=== PATIENT | female | born 1960 ===

== ENCOUNTER 2017-07-24 07:37 | Emergency (ER) | payer MEDICAID ==
[2017-07-24 07:46] VITALS: RESP 18; TEMP 98.6; O2SAT 98
--- NOTE | 2017-07-24 08:04 | C.PDOC ---
History Of Present Illness 56-year-old female, presents to the emergency department with complaints of vaginal itching, and discharged for the past 2 DAYS. NO IMPROVE OTC MEDS. NO OTHER ASSOC SX EXAM NAD +INCR ERYTHEMA LABIA MAJORA W THICK WHITE DC C/W YEAST VAGINITIS REMAINDER NEG Time Seen by Provider: 07/24/17 07:54 Chief Complaint (Nursing): Female Genitourinary History Per: Patient History/Exam Limitations: no limitations Onset/Duration Of Symptoms: Days Current Symptoms Are (Timing): Still Present Severity: Moderate Past Medical History Reviewed: Historical Data, Nursing Documentation, Vital Signs Vital Signs: Last Vital Signs Temp 98.6 F 07/24/17 07:42 Pulse 66 07/24/17 08:44 Resp 18 07/24/17 08:44 BP 138/85 07/24/17 08:44 Pulse Ox 98 07/24/17 13:36 - Medical History PMH: Depression, Gastritis, HTN, Hypercholesterolemia, Sleep Apnea Family History: States: No Known Family Hx, Hypertension - Social History Hx Alcohol Use: No Hx Substance Use: No Review Of Systems Constitutional: Negative for: Fever, Chills Respiratory: Negative for: Shortness of Breath Gastrointestinal: Negative for: Nausea, Vomiting Genitourinary: Positive for: Vaginal Discharge, Other (vaginal itching). Negative for: Dysuria, Frequency, Pelvic Pain Musculoskeletal: Negative for: Back Pain Skin: Negative for: Rash Physical Exam - Physical Exam Appears: Non-toxic, No Acute Distress Skin: Normal Color, Warm, Dry, No Rash Head: Atraumatic, Normacephalic Eye(s): bilateral: Normal Inspection Nose: Normal Oral Mucosa: Moist Lips: Normal Appearing Neck: Normal ROM Cardiovascular: Rhythm Regular, No Murmur Respiratory: Normal Breath Sounds, No Accessory Muscle Use Gastrointestinal/Abdominal: Soft, No Tenderness, No Guarding, No Rebound Back: No CVA Tenderness Pelvic: Other ( +INCR ERYTHEMA LABIA MAJORA W THICK WHITE DC C/W YEAST VAGINITIS ) Extremity: Normal ROM, No Deformity, No Swelling Neurological/Psych: Oriented x3, Normal Speech ED Course And Treatment O2 Sat by Pulse Oximetry: 98 (RA) Pulse Ox Interpretation: Normal Disposition Counseled Patient/Family Regarding: Diagnosis, Need For Followup, Rx Given - Disposition Referrals: [facility] [Other] [facility] [Outside] [facility] [Outside] Disposition: HOME/ ROUTINE Disposition Time: 08:35 Condition: FAIR Prescriptions: Clotrimazole/Betamethasone [Lotrisone] 15 gm EXT BID #1 tube Miconazole [Miconazole 7] 100 mg VG DAILY #7 sup Nitrofurantoin Macrocrystals [Macrobid] 100 mg PO BID #10 cap Phenazopyridine HCl [Pyridium] 200 mg PO BID #6 tablet Instructions: Urinary Tract Infection, Adult (DC), Vaginal Yeast Infection (DC) Forms: [employer] (Nigerien) Print Language: PALAUAN - Clinical Impression Clinical Impression: Vulvovaginal candidiasis, UTI (urinary tract infection) - Scribe Statement The provider has reviewed the documentation as recorded by the Scribe (Bertha Flores) All medical record entries made by the Scribe were at my direction and personally dictated by me. I have reviewed the chart and agree that the record accurately reflects my personal performance of the history, physical exam, medical decision making, and the department course for this patient. I have also personally directed, reviewed, and agree with the discharge instructions and disposition.
[2017-07-24 08:29] LABS: SQUAMOUS EPITHIAL 25 /hpf (0-5); URINE BACTERIA MOD (<OCC); URINE BILIRUBIN NEGATIVE (NEGATIVE); URINE BLOOD 2+ (NEGATIVE); URINE CLARITY Hazy (Clear); URINE COLOR Yellow (YELLOW); URINE GLUCOSE (UA) NORMAL (Normal); URINE LEUKOCYTE ESTERASE 3+ Leu/uL (Negative); URINE PROTEIN NEGATIVE (NEGATIVE); URINE UROBILINOGEN NORMAL mg/dL (0.2-1.0)
[2017-07-24 08:45] VITALS: BP 138/85; PULSE 66
== END 2017-07-24 08:45 | disposition home or self-care (01) ==
LOC: C.ER 07:37
DX: N39.0 Urinary tract infection, site not specified (principal); B37.3 Candidiasis of vulva and vagina

== ENCOUNTER 2017-08-22 09:48 | Emergency (ER) | payer MEDICAID ==
[2017-08-22 10:03] VITALS: BMI 49.6
--- NOTE | 2017-08-22 10:18 | C.PDOC ---
History Of Present Illness 56 y/o female presents to ED with c/o lower abdominal pain and vaginal discharge associated with vaginal itching for 3 days. Patient states she was seen at ED 2 weeks ago for similar symptoms and diagnosed with UTI. Patient was given antibiotics and states she was compliant with medication and finished it. Patient denies fever, chills, nausea, vomiting, dysuria or any other complaints at this time. Time Seen by Provider: 08/22/17 10:07 Chief Complaint (Nursing): Abdominal Pain History Per: Patient History/Exam Limitations: no limitations Onset/Duration Of Symptoms: Days Current Symptoms Are (Timing): Still Present Location Of Pain/Discomfort: Suprapubic Radiation Of Pain To:: None Quality Of Discomfort: "Pain" Past Medical History Reviewed: Historical Data, Nursing Documentation, Vital Signs Vital Signs: Last Vital Signs Temp 97.9 F 08/22/17 12:39 Pulse 63 08/22/17 12:39 Resp 19 08/22/17 12:39 BP 119/79 08/22/17 12:39 Pulse Ox 100 08/22/17 12:39 - Medical History PMH: Depression, Gastritis, HTN, Hypercholesterolemia, Sleep Apnea Surgical History: No Surg Hx Family History: States: Hypertension - Social History Hx Alcohol Use: No Hx Substance Use: No Review Of Systems Constitutional: Negative for: Fever, Chills Gastrointestinal: Positive for: Abdominal Pain. Negative for: Nausea, Vomiting Genitourinary: Positive for: Vaginal Discharge. Negative for: Dysuria, Vaginal Bleeding Musculoskeletal: Negative for: Back Pain Skin: Negative for: Rash Physical Exam - Physical Exam Appears: Non-toxic, No Acute Distress, Other (Morbidly obese) Skin: Warm, Dry, No Rash Head: Atraumatic, Normacephalic Eye(s): bilateral: Normal Inspection Oral Mucosa: Moist Neck: Normal ROM, Supple Cardiovascular: Rhythm Regular Respiratory: Normal Breath Sounds, No Rales, No Rhonchi, No Wheezing Gastrointestinal/Abdominal: Soft, Tenderness (Suprapubic), No Guarding, No Rebound Back: No CVA Tenderness Neurological/Psych: Oriented x3, Normal Speech, Normal Cognition ED Course And Treatment - Laboratory Results Result Diagrams: 08/22/17 10:56 08/22/17 10:56 Lab Interpretation: Normal O2 Sat by Pulse Oximetry: 96 (RA) Pulse Ox Interpretation: Normal Progress Note: Blood work, UA ordered. On re-evaluation abdomen soft, in no distress Reassessment Condition: Unchanged Disposition Counseled Patient/Family Regarding: Studies Performed, Diagnosis, Need For Followup, Rx Given - Disposition Referrals: [facility] [Outside] [facility] [Outside] Disposition: HOME/ ROUTINE Disposition Time: 12:00 Condition: STABLE Prescriptions: Fluconazole [Diflucan] 150 mg PO ONCE #1 tab Terconazole [Terazol 3] 1 applic VAG DAILY #1 tube Instructions: Yeast Infection (DC), Vaginitis Forms: [employer] (Amharic) Print Language: CUBAN - POA Present On Arrival: None - Clinical Impression Clinical Impression: Vaginitis - PA / [employer] / Resident Statement MD/DO has reviewed & agrees with the documentation as recorded. - Scribe Statement The provider has reviewed the documentation as recorded by the Brianibheidi Elias All medical record entries made by the Brianibheidi were at my direction and personally dictated by me. I have reviewed the chart and agree that the record accurately reflects my personal performance of the history, physical exam, medical decision making, and the department course for this patient. I have also personally directed, reviewed, and agree with the discharge instructions and disposition.
[2017-08-22 11:01] LABS: BASO % 0.2 % (0.0-2.0); EOS # 0.1 K/uL (0.0-0.7); EOS % 0.9 % (0.0-4.0); HEMOGLOBIN 12.7 g/dL (11.0-16.0); LYMPH # 3.1 K/uL (1.0-4.3); LYMPH % 44.5 % (20.0-40.0); MEAN CELL VOLUME 88.6 fL (81.0-99.0); MEAN CORPUSCULAR HEMOGLOBIN 30.6 pg (27.0-31.0); MEAN CORPUSCULAR HGB CONC 34.5 g/dL (33.0-37.0); MEAN PLATELET VOLUME 8.9 fL (7.2-11.7); MONO # 0.5 K/uL (0.0-0.8); MONO % 6.7 % (0.0-10.0); NEUT # 3.3 K/uL (1.8-7.0); NEUT % 47.7 % (50.0-75.0); NRBC % 0.1 % (0.0-2.0); RBC 4.16 Mil/uL (3.80-5.20); RED CELL DISTRIBUTION WIDTH 14.6 % (11.5-14.5)
[2017-08-22 11:17] LABS: ALB/GLOB RATIO 1.2 (1.0-2.1); ALBUMIN 4.1 g/dL (3.5-5.0); ALT/SGPT 42 U/L (9-52); AST/SGOT 20 U/L (14-36); BLOOD UREA NITROGEN 10 mg/dL (7-17); CALCIUM 9.5 mg/dl (8.6-10.4); GFR AFRICAN-AMERICAN > 60; GFR NON-AFRICAN AMERICAN > 60
[2017-08-22 11:32] LABS: SQUAMOUS EPITHIAL 1 /hpf (0-5); URINE BACTERIA RARE (<OCC); URINE BILIRUBIN NEGATIVE (NEGATIVE); URINE CLARITY Clear (Clear); URINE COLOR Straw (YELLOW); URINE GLUCOSE (UA) NORMAL (Normal); URINE LEUKOCYTE ESTERASE NEG Leu/uL (Negative); URINE PROTEIN NEGATIVE (NEGATIVE); URINE UROBILINOGEN NORMAL mg/dL (0.2-1.0)
[2017-08-22 11:43] LABS: URINE BLOOD NEGATIVE (NEGATIVE)
[2017-08-22 12:40] VITALS: BP 119/79; PULSE 63; RESP 19; TEMP 97.9
[2017-08-22 18:33] VITALS: O2SAT 96
== END 2017-08-22 12:41 | disposition home or self-care (01) ==
LOC: C.ER 09:48
DX: N76.0 Acute vaginitis (principal)

== ENCOUNTER 2018-03-28 11:33 | Outpatient (CLI) | payer MEDICAID | END 2018-03-28 11:34 | disposition home or self-care (01) | LOC: C.MAMMO 11:33 → C.USIC 11:34 | DX: R92.2 Inconclusive mammogram (principal); R22.41 Localized swelling, mass and lump, right lower limb ==